=== PATIENT | female | born 1995 ===

== ENCOUNTER 2017-08-04 15:20 | Emergency (ER) | payer OTHER ==
[~2017-08-04] VITALS: Ht 165.1 cm; Wt 69.4 kg
[2017-08-04 17:41] VITALS: BP 102/53
--- NOTE | 2017-08-04 17:41 | ED GI/GU/ABDOMINAL COMPLAINT ---
History of Present Illness General Chief Complaint: Female Urogenital Problems Stated Complaint: VAGINAL BURNING Source: patient, family Exam Limitations: language barrier Vital Signs & Intake/Output Vital Signs & Intake/Output Vital Signs Date Time Temp Pulse Resp B/P B/P Pulse O2 O2 Flow FiO2 Mean Ox Delivery Rate 08/04 1741 97.6 69 20 102/53 97 Room Air 08/04 1528 97.2 79 15 123/52 96 Room Air Room Air ED Intake and Output 08/05 0000 08/04 1200 Intake Total Output Total Balance Patient 153 lb Weight Weight Reported by Patient Measurement Method Allergies Coded Allergies: No Known Allergies (08/04/17) Reconcile Medications Fluconazole (Diflucan) 150 MG TABLET 1 TAB PO ONCE YEAST Triage Note: PT TO ED WITH SIGNIFICANT OTHER FOR VAGINAL BURNING X 4 DAYS. SEEN AT [facility] 4 DAYS AGO AND GIVEN SCRIPTS WHICH ARE NOT WORKING. DENIES ABD PAIN. Triage Nurses Notes Reviewed? yes LMP (ages 10-50): 5 days ago ? N Is pt currently ? No Onset: Gradual Duration: week(s): Timing: recent history Quality/Severity: burning, moderate Location: vaginal HPI: 21yo female presents to ED c/o vaginal burning and itching for the past week. Patient is status post vaginal delivery one month ago, no complications during delivery. Patient was seeing an [facility]EMAN in [facility] however recently moved to [place] after giving . The patient was seen and evaluated at an urgent care this week and was given 3 days of Cipro which have not improved her symptoms. At that time she did not have a LAUNDRY FOLDER exam done as there were no female providers in the clinic. Patient reports dysuria and addition to vaginal pruritus and burning. The patient had an IUD placed 3 weeks ago. The patient denies fevers, chills, rash, diarrhea, constipation, changes in vaginal discharge, vaginal odor. (Alma BOONE,Rubia Barrera) Past History Travel History Traveled to [place] past 21 day No Medical History Any Pertinent Medical History? none Neurological: NONE EENT: NONE Cardiovascular: NONE Respiratory: NONE Gastrointestinal: NONE Hepatic: NONE Renal: NONE Endocrine: NONE Blood Disorders: NONE Cancer(s): NONE Surgical History Surgical History: non-contributory Psychosocial History What is your primary language Amharic Tobacco Use: Never used ETOH Use: denies use Illicit Drug Use: denies illicit drug use Family History Hx Contributory? No (Rubia Wells) Review of Systems Review of Systems Constitutional: Reports: no symptoms. EENTM: Reports: no symptoms. Respiratory: Reports: no symptoms. Cardiovascular: Reports: no symptoms. GI: Reports: see HPI. Genitourinary: Reports: see HPI. Musculoskeletal: Reports: no symptoms. Skin: Reports: no symptoms. Neurological/Psychological: Reports: no symptoms. Hematologic/Endocrine: Reports: no symptoms. Immunologic/Allergic: Reports: no symptoms. All Other Systems: Reviewed and Negative (Rubia Wells) Physical Exam Physical Exam General Appearance: well developed/nourished, no apparent distress, alert, awake Head: atraumatic, normal appearance Eyes: Bilateral: normal appearance. Ears, Nose, Throat, Mouth: hearing grossly normal Neck: normal inspection, supple, full range of motion Respiratory: normal breath sounds, no respiratory distress, lungs clear Cardiovascular: regular rate/rhythm Gastrointestinal: normal bowel sounds, soft, non-tender, no organomegaly Pelvic: normal external exam, no cerv. motion tender, Cervix not visualized, small amount of blood in vaginal vault, small amount of thick yellow mucus, IUD strings palpation, no cervical motion tenderness Back: normal inspection, normal range of motion, no CVA tenderness Extremities: normal range of motion Neurologic/Psych: awake, alert, oriented x 3 Skin: intact, normal color, warm/dry Core Measures ACS in differential dx? No Sepsis Present: No Sepsis Focused Exam Completed? No (Rubia Wells) Progress Differential Diagnosis: endometritis, ovarian cyst, PID/cervicitis, UTI/pyelo, candidiasis, vaginitis Plan of Care: Orders Procedure Date/time Status CULTURE,URINE 08/04 1754 Active TRICHOMONAS 08/04 1754 Complete POTASSIUM HYDROXIDE (DOTTIE) 08/04 1754 Complete GENITAL CULTURE 08/04 1754 Active CHLAMYDIA-GC DNA PROBE 08/04 1754 Active URINALYSIS 08/04 1739 Complete Laboratory Tests 08/04/171756: Urine Color YEL, Urine Clarity CLEAR, Urine pH 6.0, Ur Specific Mullen 1.015, Urine Protein NEG, Urine Ketones NEG, Urine Nitrite NEG, Urine Bilirubin NEG, Urine Urobilinogen 0.2, Ur Leukocyte Esterase TRACE H, Ur Microscopic SEDIMENT EXAMINED, Urine RBC 1-3, Urine WBC RARE, Ur Epithelial Cells FEW, Urine Hemoglobin TRACE-INTACT, Urine Glucose NEG Microbiology 08/04 1800 GENITAL: GC DNA Probe - RECD 08/04 1800 GENITAL: Chlamydia DNA Probe (RAISSA) - RECD 08/04 1800 GENITAL: DOTTIE Preparation - COMP 08/04 1800 GENITAL: Trichomonas Preparation - COMP 08/04 1800 GENITAL: Genital Culture - RECD 08/04 1757 URINE ROUT: Urine Culture - RECD Speculum exam shows very mild amount of yellow clumpy discharge. UA without signs of UTI, no trichomonas or yeast detected on some labs. Given patient's current symptoms of burning and itching with yellow clumping discharge Will treat with 1 Diflucan tablet for possible yeast. Further vaginal cultures pending. Patient to follow-up with JOURNEY LINEMAN this week. IUD strings were palpated , no cervical motion tenderness. Patient's vital signs are stable, she is nontoxic appearing, no acute distress. Patient and family agree with the plan of care. Initial ED EKG: none (Alma BOONE,Rubia Barrera) Departure Departure Disposition: HOME OR SELF CARE Condition: Stable Clinical Impression Primary Impression: Vaginal pruritus Secondary Impressions: Vaginal burning Referrals: Patient Has No Primary Care Dr (PCP/Family) Additional Instructions: Take Diflucan tab and follow-up with your JOURNEY LINEMAN next week. If YOU develops severe abdominal pain, vomiting, fevers, chills, back pain please return to the emergency department. Departure Forms: Customer Survey General Discharge Information Prescriptions: Current Visit Scripts Fluconazole (Diflucan) 1 TAB PO ONCE #1 TAB (Rubia Wells) PA/ETHICS INSTRUCTOR Co-Sign Statement Statement: ED Attending supervision documentation- [] I saw and evaluated the patient. I have also reviewed all the pertinent lab results and diagnostic results. I agree with the findings and the plan of care as documented in the PA's/ETHICS INSTRUCTOR's documentation. [X] I have reviewed the ED Record and agree with the PA's/ETHICS INSTRUCTOR's documentation. [] Additions or exceptions (if any) to the PAs/ETHICS INSTRUCTOR's note and plan are summarized below: [] (Autumn YUNG,Raul Brennan)
[2017-08-04] MEDS ORDERED: DIFLUCAN150 M1 PO (19:10)
== END 2017-08-04 19:21 ==
LOC: ERH 15:20
DX: L29.2 Pruritus vulvae (principal); R10.2 Pelvic and perineal pain
CPT/HCPCS: 87070; 81001; 87071; 87086; 87491; 87591